=== PATIENT | male | born 2000 | race Caucasian/White ===

== ENCOUNTER 2021-08-19 14:33 | Emergency (ER) | payer OTHER ==
[~2021-08-19] VITALS: Ht 165.1 cm; Wt 80.3 kg
[2021-08-19 14:34] VITALS: BP 131/79
[2021-08-19] MEDS ORDERED: KETOROLAC 30 MG/ML 1ML VIAL IM ONE (18:20)
== END 2021-08-19 18:37 | disposition home or self-care (01) ==
LOC: M ED 14:33
DX: S49.91XA Unspecified injury of right shoulder and upper arm, initial encounter (principal); S09.90XA Unspecified injury of head, initial encounter; Y04.2XXA Assault by strike against or bumped into by another person, initial encounter
CPT/HCPCS: 73030; 96372; 99283; J1885

== ENCOUNTER → 2023-08-26 | Outpatient (CLI) | payer SELFPAY | LOC: M OUTALCOH 08:12 | PROVIDERS: ATTEND Psychiatry & Neurology Psychiatry | DX: F10.10 Alcohol abuse, uncomplicated (principal); Z72.0 Tobacco use ==

== ENCOUNTER 2023-09-02 13:00 | Outpatient (RCR) | payer SELFPAY | END 2023-09-15 | LOC: M OUTALCOH 13:00 | PROVIDERS: ATTEND Psychiatry & Neurology Psychiatry | DX: F10.10 Alcohol abuse, uncomplicated (principal); Z72.0 Tobacco use ==